=== PATIENT | female | born 1995 | race American Indian/Alaskan Native ===

== ENCOUNTER 2021-07-26 10:07 | Outpatient (CLI) | payer OTHER ==
--- NOTE | 2021-07-26 12:37 | Event Note ---
Date: 07/26/21 Pt back to room s/p ambulation. Denies LOF and VB. Reports +FM. SVE unchanged closed/50%/-1. POC with precautions d/w pt, SO, and pt's mother. Scheduled IOL reviewed. Questions encouraged and addressed. Pt verbalizes understanding and agrees to POC. RN present at bedside and in agreement. Pt may d/c home after reactive NST to FU as scheduled.
[2021-07-26 13:08] VITALS: BP 120/59
== END 2021-07-26 13:24 | disposition hospice, home (50) ==
LOC: TRG 10:07 → APU 10:09 → TRG 13:24
PROVIDERS: ATTEND Obstetrics & Gynecology
DX: O62.9 Abnormality of forces of labor, unspecified (principal); Z3A.40 40 weeks gestation of pregnancy
CPT/HCPCS: 59025